=== PATIENT | female | born 1985 | race Caucasian/White ===

== ENCOUNTER 2022-09-11 16:46 | Inpatient (IN) | payer BC, SELFPAY ==
[2022-09-11 17:04] VITALS: PULSE 114; O2SAT 98
[2022-09-11 17:07] VITALS: BP 129/67; PULSE 106
[2022-09-11 17:18] VITALS: RESP 16; TEMP 36.6
[2022-09-11 17:30] VITALS: BMI 43.7
[2022-09-11 18:09] VITALS: BP 124/80; PULSE 93
--- NOTE | 2022-09-11 18:14 | PM.OBHPLI ---
OB - H&P: HPI Labor/Induction History of Present Illness Date Seen: 09/11/22 Chief Complaint: The patient is a 37 year old 2 para 0010 at 39+2 weeks gestation by LMP and confirmed with 1st trimester US, who presents for IOL for AMA, maternal obesity, mild polyhydramnios and unstable lie. . Chief complaint: Induction for AMA- Unstable lie : 2 Para: 0 Narrative: Maeve Tran is a 37 year old female here for IOL for AMA, unstable lie, mild polyhydramnios and maternal obesity. has been otherwise uncomplicated. GBS negative, rubella non-immune, rH+. She has has reassuring BPPs weekly since 32 weeks and normal growth with last growth at 43% at 35 weeks History of Present Dating criteria: based on LMP care: good care Abnormal ultrasound findings: Normal US findings other than mild polyhydramnios. Medical complications: none Labs Blood type: B (+) positive Rubella: nonimmune RPR/VDLR: nonreactive GBS status: negative HBsAG: negative Review of Systems Status of ROS: Reports: 6 or more systems reviewed and unremarkable except as noted in History and below Meds Home Medications and Allergies Home Medications Medication Instructions Recorded Confirmed Type aspirin 81 mg chewable tablet 81 mg PO QDAY 08/30/22 09/11/22 History 103-folic acid 400 tab PO 08/30/22 08/30/22 History mcg-omeg3 32.5 mg-dha-fish oil chew tablet ( with DHA and Folic Acid) Allergies Allergy/AdvReac Type Severity Reaction Status Date / Time No Known Drug Allergies Allergy Verified 08/30/22 11:02 OB - H&P: Exam Physical Exam: Vital signs: Temp Pulse Resp BP Pulse Ox 97.8 F 93 16 124/80 98 09/11/22 17:18 09/11/22 18:09 09/11/22 17:18 09/11/22 18:09 09/11/22 17:04 Constitutional: Constitutional: no acute distress Routine HEENT Exam: Head: Present atraumatic Eye: Present EOMI ENT: Present mucous membranes moist Routine Neck Exam: Neck: Present full ROM Routine Respiratory Exam: Respiratory: Present CTA bilaterally Routine Cardiovascular Exam: Cardiovascular: RRR Detailed Labor and Delivery Exam: Dilation (cm): 1 Effacement (%): 30 Cervix position: posterior Consistency: medium Fetus (Single): Station: -3 Routine Neurological Exam: Present alert, oriented X3 and CN II-XII intact Routine Psychiatric Exam: Present normal affect OB - Problem Based A/P Additional Plan (1) : Status: Acute (2) AMA (advanced maternal age) multigravida 35+: Status: Acute (3) Polyhydramnios: Status: Acute (4) Unstable lie of fetus: Status: Acute Delivery/Labor/Induction Plan Plan: induction Induction method: per misoprostol protocol
[2022-09-11] MEDS: miSOPROStoL 25 MCG/0.25 TABLET PO ×3 (18:15→22:21)
[2022-09-11 18:23] LABS: SARS PCR* Negative SARS-CoV-2 (Negative)
[2022-09-11 18:43] LABS: Basophils Absolute Auto 0.03 K/uL (0.00-0.30); Basophils Percent Auto 0.3 % (0.0-3.0); Eosinophils Absolute Auto 0.12 K/uL (0.00-0.50); Eosinophils Percent Auto 1.2 % (0.0-7.0); Hematocrit 35.6 % (33.0-51.0); Hemoglobin* 12.1 gm/dL (12.0-16.0); Immature Granulocytes Abs Auto 0.15 K/uL (0.00-0.30); Immature Granulocytes Pct Auto 1.5 %; Lymphocytes Absolute Auto 2.54 K/uL (0.90-2.90); Lymphocytes Percent Auto 26.1 % (20-44); Mean Corpuscular HGB Conc 34 gm/dL (32-36); Mean Corpuscular Hemoglobin 29 pg (26-34); Mean Corpuscular Volume 85 fL (80-100); Monocytes Percent Auto 10.4 % (0.0-11.0); Neutrophils Percent Auto 60.5 % (42.0-72.0); Platelet Count* 281 K/uL (140-440); RDW Coefficient of Variation % 13.1 % (11.5-15.5); Red Blood Count 4.18 m/uL (4.00-5.20); White Blood Count* 9.75 K/uL (4.50-11.00)
[2022-09-11 18:48] LABS: Slide Review Reflex No
[2022-09-11] MEDS: hydrOXYzine pamoate 25 MG CAPSULE 100 MG PO (22:21)
[2022-09-11 22:25] VITALS: BP 131/75; PULSE 86; RESP 16; TEMP 36.4
[2022-09-12] VITALS (137 sets, daily range): BP systolic 90–168; BP diastolic 53–95; PULSE 84–153; RESP 16–18; TEMP 36.5–36.9; O2SAT 88–100
[2022-09-12] MEDS: miSOPROStoL 25 MCG/0.25 TABLET PO ×3 (01:33→05:41)
[2022-09-12] MEDS: MORPHINE 10 MG/ML inj IM (01:34)
[2022-09-12] MEDS: LACTATED RINGERS 1000 ML 1,000 ML 125 ML IV ×2 (09:00→20:14)
[2022-09-12] MEDS: OXYTOCIN 30 unit/500 ML in NS 30 UNIT/500 ML BAG IVPB (09:29)
[2022-09-12] MEDS: ROPIVACAINE 0.2% 100 ml 100 ML 12 MG EPIDURAL ×2 (11:53→21:09)
--- NOTE | 2022-09-12 12:16 | PM.OBPNL ---
Subjective Date Seen: 09/12/22 Narrative: Maeve is a at 39+3 here for IOL for AMA, mild poly and unstable lie. Received 6 doses of PO cytotec overnight and had SROM with clear fluid at 0410. Pitocin was started around 0945 and contractions became stronger. Epidural is just placed and patient is now more comfortable. Objective Vital Signs: Last Vital Signs Temp 98.0 F 09/12/22 10:54 Pulse 109 H 09/12/22 12:11 Resp 18 09/12/22 09:35 BP 107/57 L 09/12/22 12:11 Pulse Ox 99 09/12/22 12:15 Pelvic Exam Dilation (cm): 4.5 Effacement (%): 90 Station: -3 Contractions Monitor mode: External Contraction pattern: Irregular Contraction intensity: Moderate Pitocin Rate (mU/min): 1 Assessment Assessment: induction ongoing Station: -3 Amniotic Membrane Status: SROM Status: Category l Heart Rate Baseline: 150 [place] Variability: Moderate (6-25) Monitor Accelerations: Present Monitor Decelerations: None Plan Plan: Continue pitocin titration. Anticipate .
--- NOTE | 2022-09-12 13:43 | PM.ANBPRC ---
[facility] Social History Smoking Status: Former smoker Meds Home Medications and Allergies Home Medications Medication Instructions Recorded Confirmed Type aspirin 81 mg chewable tablet 81 mg PO QDAY 08/30/22 09/11/22 History 103-folic acid 400 tab PO 08/30/22 08/30/22 History mcg-omeg3 32.5 mg-dha-fish oil chew tablet ( with DHA and Folic Acid) Allergies Allergy/AdvReac Type Severity Reaction Status Date / Time No Known Drug Allergies Allergy Verified 09/12/22 07:45 Results Labs Labs: Laboratory Results - last 24 hr 09/11/22 09/11/22 09/11/22 17:30 18:38 18:38 WBC 9.75 RBC 4.18 Hgb 12.1 Hct 35.6 MCV 85 MCH 29 MCHC 34 RDW Coeff of Emigdio 13.1 Plt Count 281 Neut % (Auto) 60.5 Lymph % (Auto) 26.1 [place] % (Auto) 10.4 Eos % (Auto) 1.2 Baso % (Auto) 0.3 Neut # (Auto) 5.90 Lymph # (Auto) 2.54 [place] # (Auto) 1.00 H Eos # (Auto) 0.12 Baso # (Auto) 0.03 Abs Immat Gran (auto) 0.15 Imm/Tot Granulo (auto) 1.5 SARS-CoV-2 (PCR) Negative SARS-CoV-2 Blood Type B Positive Antibody Screen NEGATIVE Vital Signs Vital Signs: Last Vital Signs Temp 97.9 F 09/12/22 12:26 Pulse 96 09/12/22 13:37 Resp 18 09/12/22 09:35 BP 110/61 09/12/22 13:37 Pulse Ox 97 09/12/22 13:40 Weight: 115.666 kg Height: 162.56 cm Anesthesia Procedures Epidural Insertion Patient Location: OB Start Time: 11:00 Stop Time: 12:00 Start Date: 09/12/22 Stop Date: 09/12/22 Reason for Block: procedure for pain Patient Position: sitting Performed By: Zhang Klein Preanesthetic Checklist: IV checked, risks and benefits discussed, surgical consent, monitors and equipment checked, pre-op evaluation, timeout performed and anesthesia consent Prep: chlorhexidine gluconate Monitoring: blood pressure monitoring, continuous pulse oximetry and heart rate Approach: midline Vertebral Space: lumbar (1-5) Epidural Technique: GREY saline Needle Type: Tuohy needle Injection Technique: continuous catheter Needle gauge: 17 Needle Length (cm): 10 cm Needle Insertion Depth (cm): 6 Catheter Gauge: 19 Catheter Type: multi-orifice Catheter at skin depth (cm): 12 Test Dose Result: negative and lidocaine 1.5% with epinephrine 1 to 200,000
[2022-09-12] MEDS: LACTATED RINGERS 1000 ML 1,000 ML 999 ML IV (15:25)
--- NOTE | 2022-09-12 16:40 | PM.OBPNL ---
Subjective Date Seen: 09/12/22 Narrative: Patient is comfortable with epidural, having some nausea. Called to put in internal monitors due to variable decels, however patient is now near to complete. Objective Vital Signs: Last Vital Signs Temp 98.0 F 09/12/22 14:10 Pulse 121 H 09/12/22 16:37 Resp 18 09/12/22 09:35 BP 116/77 09/12/22 16:37 Pulse Ox 100 09/12/22 16:36 Pelvic Exam Dilation (cm): 9.5 Effacement (%): 100 Station: -2 Contractions Monitor mode: External Contraction pattern: Regular Contraction intensity: Moderate Pitocin Rate (mU/min): 1 Assessment Station: -3 Amniotic Membrane Status: SROM Status: Category l Heart Rate Baseline: 150 Monitor Accelerations: Present Monitor Decelerations: Variable Plan Plan: Continue pitocin induction. Anticipate .
[2022-09-13] VITALS (30 sets, daily range): BP systolic 104–169; BP diastolic 54–88; PULSE 96–140; RESP 16; TEMP 36.3; O2SAT 97
--- NOTE | 2022-09-13 00:29 | PM.OBPNL ---
Subjective Date Seen: 09/13/22 Narrative: Maeve is a at 39+4 who is here for IOL for AMA, mild poly, unstable lie. Has been pushing for 5 hours, was making progress, however IV has come out and she is exhausted. Minimal contractions now without pitocin. Objective Vital Signs: Last Vital Signs Temp 98 F 09/12/22 19:40 Pulse 103 H 09/13/22 00:07 Resp 16 09/12/22 19:40 BP 145/88 H 09/13/22 00:07 Pulse Ox 100 09/12/22 22:18 Pelvic Exam Dilation (cm): 10 Effacement (%): 100 Station: +1 Contractions Monitor mode: External Contraction Frequency: 10 minutes Contraction pattern: Irregular Contraction intensity: Strong/Firm Pitocin Rate (mU/min): 0 Assessment Station: -3 Amniotic Membrane Status: SROM Status: Category l Heart Rate Baseline: 150 Monitor Accelerations: Present Monitor Decelerations: Variable Plan Plan: Discussed options for vacuum assisted delivery vs given time she has been pushing. Also discussed case with dials inspector continuous conveyor screen drier who will be present for vacuum and/or consult for delivery.
--- NOTE | 2022-09-13 02:17 | P.OBCN_ITS ---
OB - CN: HPI Date of Consult Time Seen by Provider: 01:00 Date Seen: 09/13/22 Patient: Ivelisse Patient Consult date: 09/13/22 Requesting Physician: Sylvia Olson MD Primary Care Provider: Not a Local Provider Consult Narrative Reason for consult: arrest of labor Narrative: The patient is a 37 year old G 2 P 0010 at 39 4/7 weeks gestation that was admitted to the Center on 09/11/22 for induction of labor. She reached complete cervical dilation at 1830 on 09/12/2022. She initally had no urge to push due to dense epidural. The infusion was decreased, and she began actively pushing around 1900. At the time that I was consulted by Dr. Olson, the patie nt had been pushing for approximately 5 hours. Contraction frequency and pushing efforts were somewhat variable, but she had made progress. Dr. Olson requested my evaluation and opinion about whether vacuum-assisted vaginal delivery was an option, or if we needed to consider delivery. History of Present Dating criteria: based on LMP care: good care complications comment: AMA, unstable lie, mild polyhydramnios and maternal obesity. History History 2 Elective abortions Para 0 Spontaneous abortions Hx # Term Pregnancies Ectopic pregnancies Hx # Pregnancies Multiple births Number of Living Children 0 Labs Blood type: B (+) positive Rubella: nonimmune RPR/VDLR: nonreactive GBS status: negative HBsAG: negative OB Labs: Lab Assessment Start: 09/11/22 16:54 Freq: ONCE Status: Complete Protocol: PC.OBGBS Activity Type Activity Date Activity User E-sign Co-sign Detail Recorded Client Recorded Date Recorded By Document 09/11/22 17:32 SHANNON [id number] 09/11/22 17:32 SHANNON 09/11/22 17:32 Lab Assessment GBS Negative Previous [place] with Invasive GBS No Does Patient Meet Criteria No No Treatment Needed OK Maternal Blood Type B Maternal RH Factor Positive Evaluate Maternal Rubella Immune Status Non-Immune Hepatitis B Surface Antigen Negative Maternal HIV Status Negative Maternal Syphillis (RPR) Status Negative Are Labs Available Yes PFSH PFSH Social History Smoking Status: Former smoker Meds Home Medications and Allergies Home Medications Medication Instructions Recorded Confirmed Type aspirin 81 mg chewable tablet 81 mg PO QDAY 08/30/22 09/11/22 History 103-folic acid 400 tab PO 08/30/22 08/30/22 History mcg-omeg3 32.5 mg-dha-fish oil chew tablet ( with DHA and Folic Acid) Allergies Allergy/AdvReac Type Severity Reaction Status Date / Time No Known Drug Allergies Allergy Verified 09/12/22 07:45 OB - H&P: Exam Physical Exam: Vital signs: Temp Pulse Resp BP Pulse Ox 97.9 F 118 H 18 141/74 H 100 09/12/22 22:26 09/13/22 01:53 09/12/22 22:26 09/13/22 01:53 09/12/22 22:18 Constitutional: Constitutional: no acute distress Detailed Labor and Delivery Exam: Patient Gravid: yes Dilation (cm): 10 Effacement (%): 100 Cervix position: mid Contraction intensity: Strong/Firm Comments: Pitocin infusion at 10 mu/min Fetus (Single): Station: -2 (BHAKTI position) Amniotic Membrane Status: SROM Amniotic Membrane Fluid Description: Clear Monitor Accelerations: Present Monitor Decelerations: Early Residential Variability: Moderate (6-25) OB - CN: A/P Assessment and Plan (1) : Status: Acute (2) AMA (advanced maternal age) multigravida 35+: Status: Acute (3) Polyhydramnios: Status: Acute (4) Unstable lie of fetus: Status: Acute Plan I found the pelvis to be adequate and the fetus to be in a BHAKTI position. I advised Dr. Olson that vacuum-assisted vaginal delivery would be appropriate. This was attempted, with 3 pulls, and the infant did not deliver, though there was some further descent of the vertex per Dr. Olson. Continued pushing without the vacuum was done, with no further descent. delivery recommended. O.R. team notified. Addendum: While waiting for the team, the patient continued active pushing and was able to bring the head to the level of the introitus. One additional pull was done with the vacuum by Dr. Olson, and then the patient was able to deliver the spontaneously with a few more active pushes.
--- NOTE | 2022-09-13 03:39 | P.OBPRC_ITS ---
Procedure Procedure Done: Global Procedure Details: Procedures Operation Date: 09/13/22 02:45 <No data on this case meets the specified criteria> Events: Polyhydramnios and AMA Intrapartal Events: Labor Induction and Prolonged 2nd Stage >2.5 Hrs Induction method: per misoprostol protocol Delivery augmentation: pitocin Delivery monitor: external FHT Route of delivery: vacuum extraction Indication for instrumentation: maternal exhaustion Episiotomy description: None Laceration description: Vaginal - 2nd Degree Delivery repair: Vicryl Estimated blood loss (mL): 250 Anesthesia type: Epidural Narrative: The patient is a 37 year-old admitted on 09/11/22 at 39 Weeks, 2 Days gestation for IOL for AMA.? Cervical exam on admission was 1 cm/20 % effaced/-3 station with membranes intact in vertex presentation.? Contractions were absent.? heart rate demonstrated baseline 150 bpm with moderate variabili ty, + accelerations, - decelerations; a category 1 tracing.? SROM occurred at 0408 with clear fluid. ? Labor Analgesia:? epidural ? Pitocin:? yes ? Labor onset:? 1130 ? Complete:? 1830 ? Pushing:? 1830 ? heart tones during second stage were category 1. Due to maternal exhaustion, a vacuum was placed through 3 contractions at 0135, 0145 adn 0149. This was done in consultation with Dr. Miller and Dr. elliott was present for delivery for infant. This did bring vertex down and baby continued to have reassuring heart tones, so mom continued to push. A second vacuum attempt was done at 0240 as an outlet vacuum, however a pop off occured at 0242 ? At 0253 a viable male infant delivered in vertex OA presentation over intact perineum via spontaneous vaginal delivery.? was placed on maternal abdomen.? Cord was clamped and cut after a 30-60 second delay.? Nose and mouth were bulb suctioned.? Infant weight pending.? 8 at 1 minute and 9 at 5 minutes.? Shoulder dystocia: no.? Nuchal cord: no. ? Placenta delivered spontaneously and complete at 0258 with a 3 vessel cord. ? Mother and were stable after delivery. ? Lacerations:? 2nd degree vaginal and vaginal sulcus tear, repaired with 3-0 vicryl. ? Blood loss: 250 mL. Blood loss measurement type: QBL ? Sponge and needles counts are correct. Infant Infant Gender: Male presentation: vertex Placental Delivery Description: Spontaneous Cord Description: 3 Vessels total score - 1 minute: 8 total score - 5 minute: 9
[2022-09-13] MEDS: LACTATED RINGERS 1000 ML 1,000 ML IV ×2 (06:13→07:40)
[2022-09-13] MEDS: miSOPROStoL 800 MCG/4 TABLET PR (06:44)
[2022-09-13] MEDS: ACETAMINOPHEN 500 MG TABLET 1000 MG PO (06:56)
[2022-09-13] MEDS: OXYTOCIN 10 UNIT/ML INJ IM (07:42)
[2022-09-13] MEDS: TRANEXAMIC ACID 100 MG/ML INJ 1000 MG IV (07:42)
[2022-09-13] MEDS: METHYLERGONOVINE MALEATE 0.2 MG/ML INJ IM (07:42)
[2022-09-13 08:37] LABS: INR 0.99 (0.91-1.10); Partial Thromboplastin Time* 28 Seconds (23-33); Prothrombin Time 13.7 Seconds
[2022-09-13 08:40] LABS: Hematocrit 24.2 % (33.0-51.0); Hemoglobin* 8.4 gm/dL (12.0-16.0); Mean Corpuscular Hemoglobin 35 pg (26-34); Mean Corpuscular Volume 85 fL (80-100); Red Blood Count 2.86 m/uL (4.00-5.20); White Blood Count* 30.16 K/uL (4.50-11.00)
[2022-09-13 08:45] LABS: Basophils Percent Auto 0.1 % (0.0-3.0); Mean Corpuscular HGB Conc 35 gm/dL (32-36); Monocytes Percent Auto 9.9 % (0.0-11.0); Neutrophils Percent Auto 80.8 % (42.0-72.0); Platelet Count* 335 K/uL (140-440)
[2022-09-13 08:46] LABS: Immature Granulocytes Pct Auto 1.2 %; Slide Review Reflex Yes
[2022-09-13 08:52] LABS: Fibrinogen* 459 mg/dL (200-450)
[2022-09-13 09:30] LABS: Basophils Percent Auto 0.1 % (0.0-3.0); Eosinophils Percent Auto 0.1 % (0.0-7.0); Hematocrit 20.9 % (33.0-51.0); Immature Granulocytes Pct Auto 1.1 %; Lymphocytes Percent Auto 6.6 % (20-44); Mean Corpuscular HGB Conc 34 gm/dL (32-36); Mean Corpuscular Hemoglobin 30 pg (26-34); Mean Corpuscular Volume 87 fL (80-100); Monocytes Percent Auto 7.8 % (0.0-11.0); Neutrophils Percent Auto 84.3 % (42.0-72.0); Platelet Count* 176 K/uL (140-440); RDW Coefficient of Variation % 13.1 % (11.5-15.5); Red Blood Count 2.41 m/uL (4.00-5.20); White Blood Count* 19.11 K/uL (4.50-11.00)
[2022-09-13 09:31] LABS: Hemoglobin* 7.2 gm/dL (12.0-16.0); Slide Review Reflex No
[2022-09-13 09:33] LABS: Slide Review Acceptable Review (Acceptable)
[2022-09-13 09:47] LABS: Albumin* 1.7 g/dL (3.3-5.0); Chloride* 105 mmol/L (96-114); Sodium* 127 mmol/L (135-149)
[2022-09-13 09:48] LABS: Potassium* 5.3 mmol/L (3.6-5.1)
[2022-09-13 09:49] LABS: INR 1.11 (0.91-1.10)
[2022-09-13 09:50] LABS: ABG PCO2 42 mmHG (35-45); Base Excess ABG -7.3 mmol/L (-3.0-3.0); HCO3 ABG 19 mmol/L (21-28); Oxygen Saturation ABG 100 % (92-100); TCO2 ABG 19 mmol/l (21-30); pH ABG 7.27 (7.35-7.45)
[2022-09-13 09:50] LABS: Alanine Aminotransferase* 18 U/L (4-35); Alkaline Phosphatase* 48 U/L (40-150); Aspartate Amino Transferase* 34 U/L (12-35); Bilirubin Total* 0.4 mg/dL (0.1-1.5); Blood Urea Nitrogen* 12 mg/dL (5-24); Calcium* 6.9 mg/dL (8.4-10.6); Carbon Dioxide* 18 mmol/L (20-32); Creatinine* 0.6 mg/dL (0.5-1.5); Est. Creatinine Clearance* 111.93; Estimated Glomerular Filt Rate 119 ml/min; Fibrinogen* 332 mg/dL (200-450); Glucose* 103 mg/dL (60-115); Partial Thromboplastin Time* 30 Seconds (23-33); Total Protein* 3.7 g/dL (6.0-8.3)
[2022-09-13 10:51] LABS: Basophils Percent Auto 0.1 % (0.0-3.0); Hematocrit 29.5 % (33.0-51.0); Hemoglobin* 10.2 gm/dL (12.0-16.0); Immature Granulocytes Pct Auto 0.8 %; Lymphocytes Percent Auto 5.4 % (20-44); Mean Corpuscular HGB Conc 35 gm/dL (32-36); Mean Corpuscular Hemoglobin 30 pg (26-34); Mean Corpuscular Volume 88 fL (80-100); Monocytes Percent Auto 8.3 % (0.0-11.0); Neutrophils Percent Auto 85.4 % (42.0-72.0); Platelet Count* 189 K/uL (140-440); RDW Coefficient of Variation % 13.6 % (11.5-15.5); Red Blood Count 3.36 m/uL (4.00-5.20); Slide Review Reflex No; White Blood Count* 22.41 K/uL (4.50-11.00)
[2022-09-13 11:14] LABS: INR 0.99 (0.91-1.10); Prothrombin Time 13.7 Seconds
[2022-09-13 11:15] LABS: Fibrinogen* 461 mg/dL (200-450); Partial Thromboplastin Time* 29 Seconds (23-33)
--- NOTE | 2022-09-13 12:27 | W.PM.OBTRAN ---
History of Present Illness History of Present Illness History of Present Illness: Harley is a 37-year-old G2 now P 1-0-1-1 woman who is status post normal spontaneous vaginal delivery at 39 weeks, 4 days gestation after induction of labor for indication of unstable lie and mild polyhydramnios. Her was complicated by/notable for: 1. Advanced maternal age. 2. Unstable lie and mild polyhydramnios. 3. Maternal obesity. Induction of labor consisted of 6 doses of p.o. Cytotec. She had SROM for clear fluid thereafter. She Pitocin for augmentation of labor. She had epidural for pain control. She had a markedly prolonged 2nd stage, nearly 8 hours. She had a vacuum assisted vaginal delivery of a male infant at 2:53 a.m.. She had spontaneous delivery of placenta 2:58 a.m.. She had a second-degree vaginal and sulcal laceration. EBL for delivery was 250 mL. At around 7:30 a.m. this morning, the patient began to hemorrhage. Between that time and the onset of surgery, her EBL was 4 L. She received multiple uterotonics and tranexamic acid. She received massive transfusion. She had attempted manual removal of placental fragments, as well as uterine curettage. None of these efforts were successful at removing placental fragments on the posterior fundus. Given concerns for placenta accreta and massive blood loss, we proceeded with total abdominal hysterectomy with bilateral salpingectomy. Cystoscopy revealed bilateral ureteral patency after procedure. During necrosis of the procedure, she received 4 units of packed red blood cells, 3 units of FFP and 1 unit of cryoprecipitate. Summary of recent labs at the time of the writing of this transfer document include: CBC at 7:40 a.m.: Hemoglobin 8.4, hematocrit 24.2, platelets 335 CBC at 9:21 a.m.: Hemoglobin 7.2, hematocrit 20.9, platelets 176 CBC at 10:43 a.m.: Hemoglobin 10.2, hematocrit 29.5, platelets 189 Serial fibrinogen levels: 7:40 a.m.: 459 9:21 a.m.: 332 10:43 a.m.: 461 Arterial blood gas at 9:45 a.m.: PH 7.27, pCO2 42, PO2 143, HC03 19, base excess -7.3 Chemistries at 9:21 a.m.: Sodium 127, potassium 5.3, calcium 6.9 Meds Home Medications and Allergies Home Medications Medication Instructions Recorded Confirmed Type aspirin 81 mg chewable tablet 81 mg PO QDAY 08/30/22 09/11/22 History 103-folic acid 400 tab PO 08/30/22 08/30/22 History mcg-omeg3 32.5 mg-dha-fish oil chew tablet ( with DHA and Folic Acid) Allergies Allergy/AdvReac Type Severity Reaction Status Date / Time No Known Drug Allergies Allergy Verified 09/12/22 07:45 [facility] Medical History (Updated 09/13/22 @ 12:32 by Coco Brown MD) Placenta accreta hemorrhage Retained placenta Social History Smoking Status: Former smoker History History 2 Elective abortions Para 1 Spontaneous abortions Hx # Term Pregnancies Ectopic pregnancies Hx # Pregnancies Multiple births Number of Living Children 0 OB - H&P: Exam Physical Exam Vital signs: Temp Pulse Resp BP Pulse Ox 97.4 F L 137 H 16 112/54 L 97 09/13/22 00:55 09/13/22 07:39 09/13/22 00:55 09/13/22 07:39 09/13/22 07:46 Narrative: Patient remains intubated, in operating room, awaiting transfer for higher level of care Results Labs Lab Assessment Start: 09/11/22 16:54 Freq: ONCE Status: Complete Protocol: PC.OBGBS Activity Type Activity Date Activity User E-sign Co-sign Detail Recorded Client Recorded Date Recorded By Document 09/11/22 17:32 SHANNON [id number] 09/11/22 17:32 SHANNON 09/11/22 17:32 Lab Assessment GBS Negative Previous with Invasive GBS No Does Patient Meet Criteria No No Treatment Needed OK Maternal Blood Type B Maternal RH Factor Positive Evaluate Maternal Rubella Immune Status Non-Immune Hepatitis B Surface Antigen Negative Maternal HIV Status Negative Maternal Syphillis (RPR) Status Negative Are Labs Available Yes Labs Laboratory Tests 09/13/22 09/13/22 09/13/22 Range/Units 10:43 10:43 09:45 WBC 22.41 H (4.50-11.00) K/uL RBC 3.36 L (4.00-5.20) m/uL Hgb 10.2 L (12.0-16.0) gm/dL Hct 29.5 L (33.0-51.0) % MCV 88 (80-100) fL MCH 30 (26-34) pg MCHC 35 (32-36) gm/dL RDW Coeff of Emigdio 13.6 (11.5-15.5) % Plt Count 189 (140-440) K/uL Neut % (Auto) 85.4 H (42.0-72.0) % Lymph % (Auto) 5.4 L (20-44) % Mcdowell % (Auto) 8.3 (0.0-11.0) % Eos % (Auto) 0.0 (0.0-7.0) % Baso % (Auto) 0.1 (0.0-3.0) % Neut # (Auto) 19.10 H (1.7-7.0) K/uL Lymph # (Auto) 1.20 (0.90-2.90) K/uL Mcdowell # (Auto) 1.90 H (0.00-0.90) K/UL Eos # (Auto) 0.00 (0.00-0.50) K/uL Baso # (Auto) 0.00 (0.00-0.30) K/uL Abs Immat Gran (auto) 0.20 (0.00-0.30) K/uL Imm/Tot Granulo (auto) 0.8 % Diff Slide Review (Acceptable) INR 0.99 (0.91-1.10) APTT 29 (23-33) Seconds Fibrinogen 461 H (200-450) mg/dL ABG pH 7.27 L (7.35-7.45) ABG pCO2 42 (35-45) mmHG ABG pO2 143.0 H (80-105) mmHG ABG HCO3 19 L (21-28) mmol/L ABG Total CO2 19 L (21-30) mmol/l ABG O2 Saturation 100 (92-100) % ABG Base Excess -7.3 L (-3.0-3.0) mmol/L Sodium (135-149) mmol/L Potassium (3.6-5.1) mmol/L Chloride (96-114) mmol/L Carbon Dioxide (20-32) mmol/L BUN (5-24) mg/dL Creatinine (0.5-1.5) mg/dL Estimated Creat Clear Estimated GFR ml/min Glucose (60-115) mg/dL Calcium (8.4-10.6) mg/dL Total Bilirubin (0.1-1.5) mg/dL AST (12-35) U/L ALT (4-35) U/L Alkaline Phosphatase (40-150) U/L Total Protein (6.0-8.3) g/dL Albumin (3.3-5.0) g/dL SARS-CoV-2 (PCR) (Negative) Blood Type Antibody Screen Crossmatch (AHG) 09/13/22 09/13/22 09/13/22 Range/Units 09:21 09:21 09:21 WBC 19.11 H (4.50-11.00) K/uL RBC 2.41 L (4.00-5.20) m/uL Hgb 7.2 L* (12.0-16.0) gm/dL Hct 20.9 L (33.0-51.0) % MCV 87 (80-100) fL MCH 30 (26-34) pg MCHC 34 (32-36) gm/dL RDW Coeff of Emigdio 13.1 (11.5-15.5) % Plt Count 176 (140-440) K/uL Neut % (Auto) 84.3 H (42.0-72.0) % Lymph % (Auto) 6.6 L (20-44) % Mcdowell % (Auto) 7.8 (0.0-11.0) % Eos % (Auto) 0.1 (0.0-7.0) % Baso % (Auto) 0.1 (0.0-3.0) % Neut # (Auto) 16.10 H (1.7-7.0) K/uL Lymph # (Auto) 1.30 (0.90-2.90) K/uL Mcdowell # (Auto) 1.50 H (0.00-0.90) K/UL Eos # (Auto) 0.00 (0.00-0.50) K/uL Baso # (Auto) 0.00 (0.00-0.30) K/uL Abs Immat Gran (auto) 0.20 (0.00-0.30) K/uL Imm/Tot Granulo (auto) 1.1 % Diff Slide Review (Acceptable) INR 1.11 H (0.91-1.10) APTT 30 (23-33) Seconds Fibrinogen 332 (200-450) mg/dL ABG pH (7.35-7.45) ABG pCO2 (35-45) mmHG ABG pO2 (80-105) mmHG ABG HCO3 (21-28) mmol/L ABG Total CO2 (21-30) mmol/l ABG O2 Saturation (92-100) % ABG Base Excess (-3.0-3.0) mmol/L Sodium 127 L (135-149) mmol/L Potassium 5.3 H (3.6-5.1) mmol/L Chloride 105 (96-114) mmol/L Carbon Dioxide 18 L (20-32) mmol/L BUN 12 (5-24) mg/dL Creatinine 0.6 (0.5-1.5) mg/dL Estimated Creat Clear 111.93 Estimated GFR 119 ml/min Glucose 103 (60-115) mg/dL Calcium 6.9 L (8.4-10.6) mg/dL Total Bilirubin 0.4 (0.1-1.5) mg/dL AST 34 (12-35) U/L ALT 18 (4-35) U/L Alkaline Phosphatase 48 (40-150) U/L Total Protein 3.7 L (6.0-8.3) g/dL Albumin 1.7 L (3.3-5.0) g/dL SARS-CoV-2 (PCR) (Negative) Blood Type Antibody Screen Crossmatch (AHG) 09/13/22 09/13/22 09/13/22 Range/Units 08:06 07:40 07:40 WBC 30.16 H* (4.50-11.00) K/uL RBC 2.86 L (4.00-5.20) m/uL Hgb 8.4 L (12.0-16.0) gm/dL Hct 24.2 L (33.0-51.0) % MCV 85 (80-100) fL MCH 35 H (26-34) pg MCHC 35 (32-36) gm/dL RDW Coeff of Emigdio (11.5-15.5) % Plt Count 335 (140-440) K/uL Neut % (Auto) 80.8 H (42.0-72.0) % Lymph % (Auto) 8.0 L (20-44) % Mcdowell % (Auto) 9.9 (0.0-11.0) % Eos % (Auto) 0.0 (0.0-7.0) % Baso % (Auto) 0.1 (0.0-3.0) % Neut # (Auto) 24.40 H (1.7-7.0) K/uL Lymph # (Auto) 2.40 (0.90-2.90) K/uL Mcdowell # (Auto) 3.00 H (0.00-0.90) K/UL Eos # (Auto) 0.00 (0.00-0.50) K/uL Baso # (Auto) 0.00 (0.00-0.30) K/uL Abs Immat Gran (auto) 0.40 H (0.00-0.30) K/uL Imm/Tot Granulo (auto) 1.2 % Diff Slide Review Acceptable Review (Acceptable) INR 0.99 (0.91-1.10) APTT 28 (23-33) Seconds Fibrinogen 459 H (200-450) mg/dL ABG pH (7.35-7.45) ABG pCO2 (35-45) mmHG ABG pO2 (80-105) mmHG ABG HCO3 (21-28) mmol/L ABG Total CO2 (21-30) mmol/l ABG O2 Saturation (92-100) % ABG Base Excess (-3.0-3.0) mmol/L Sodium (135-149) mmol/L Potassium (3.6-5.1) mmol/L Chloride (96-114) mmol/L Carbon Dioxide (20-32) mmol/L BUN (5-24) mg/dL Creatinine (0.5-1.5) mg/dL Estimated Creat Clear Estimated GFR ml/min Glucose (60-115) mg/dL Calcium (8.4-10.6) mg/dL Total Bilirubin (0.1-1.5) mg/dL AST (12-35) U/L ALT (4-35) U/L Alkaline Phosphatase (40-150) U/L Total Protein (6.0-8.3) g/dL Albumin (3.3-5.0) g/dL SARS-CoV-2 (PCR) (Negative) Blood Type Antibody Screen Crossmatch (AHG) See Detail 09/11/22 09/11/22 09/11/22 Range/Units 18:38 18:38 17:30 WBC 9.75 (4.50-11.00) K/uL RBC 4.18 (4.00-5.20) m/uL Hgb 12.1 (12.0-16.0) gm/dL Hct 35.6 (33.0-51.0) % MCV 85 (80-100) fL MCH 29 (26-34) pg MCHC 34 (32-36) gm/dL RDW Coeff of Emigdio 13.1 (11.5-15.5) % Plt Count 281 (140-440) K/uL Neut % (Auto) 60.5 (42.0-72.0) % Lymph % (Auto) 26.1 (20-44) % Mcdowell % (Auto) 10.4 (0.0-11.0) % Eos % (Auto) 1.2 (0.0-7.0) % Baso % (Auto) 0.3 (0.0-3.0) % Neut # (Auto) 5.90 (1.7-7.0) K/uL Lymph # (Auto) 2.54 (0.90-2.90) K/uL Mcdowell # (Auto) 1.00 H (0.00-0.90) K/UL Eos # (Auto) 0.12 (0.00-0.50) K/uL Baso # (Auto) 0.03 (0.00-0.30) K/uL Abs Immat Gran (auto) 0.15 (0.00-0.30) K/uL Imm/Tot Granulo (auto) 1.5 % Diff Slide Review (Acceptable) INR (0.91-1.10) APTT (23-33) Seconds Fibrinogen (200-450) mg/dL ABG pH (7.35-7.45) ABG pCO2 (35-45) mmHG ABG pO2 (80-105) mmHG ABG HCO3 (21-28) mmol/L ABG Total CO2 (21-30) mmol/l ABG O2 Saturation (92-100) % ABG Base Excess (-3.0-3.0) mmol/L Sodium (135-149) mmol/L Potassium (3.6-5.1) mmol/L Chloride (96-114) mmol/L Carbon Dioxide (20-32) mmol/L BUN (5-24) mg/dL Creatinine (0.5-1.5) mg/dL Estimated Creat Clear Estimated GFR ml/min Glucose (60-115) mg/dL Calcium (8.4-10.6) mg/dL Total Bilirubin (0.1-1.5) mg/dL AST (12-35) U/L ALT (4-35) U/L Alkaline Phosphatase (40-150) U/L Total Protein (6.0-8.3) g/dL Albumin (3.3-5.0) g/dL SARS-CoV-2 (PCR) Negative SARS-CoV-2 (Negative) Blood Type B Positive Antibody Screen NEGATIVE Crossmatch (AHG) Assessment and Plan Assessment and plan (1) hemorrhage: Problem comment: Greater than 4 L of estimated blood loss. Suspected placenta accreta on exam. Now status post massive transfusion. Currently with stable vital signs. Intubated. Status: Acute Mode of transport: [facility] Transfer to: [facility] (2) Placenta accreta: Status: Acute Plan Transfer to higher level of care for ICU admission. [facility] has accepted patient in transfer. Dr. Carpio is accepting physician.
--- NOTE | 2022-09-13 12:33 | P.NB_ITS ---
Nerve Block Nerve Block Time Seen by Provider: 12:34 Date Seen: 09/13/22 Type of block requested by surgeon for post-operative analgesia: TAP Side: bilateral Time out performed: Yes Verification of patient name: Yes Verification of date of : Yes Site marking: site marked Name of person performing procedure: Ernie Continuous monitoring Was continuous monitoring of O2 sat, B/P, behavioral health clinician, recorded every 15 minutes?: Yes Procedure Checklist: sterile prep, needles and gloves Ultrasound guided. Images saved: Yes Medications given in 5ml increments after negative aspiration: Marcaine %: 0.25 mL: 30 Needle gauge: 20 and Exparel mL: 10 Patient tolerated procedure well: Yes Additional comments: Needle noted adjacent to nerve Block Charges Block Charge (with Pro Fee): TAP Bilateral Use of Ultrasound Machine for Block: Yes- US Guidance/pain block
--- NOTE | 2022-09-13 12:34 | W.PM.GYNPROC ---
Procedure Note Date Seen: 09/13/22 Procedure Details: PREOPERATIVE DIAGNOSIS: hemorrhage with retained placenta POSTOPERATIVE DIAGNOSIS: hemorrhage with suspected placenta accreta PROCEDURE: Attempted manual removal of placental fragments uterine curettage under ultrasound guidance Total abdominal hysterectomy with bilateral salpingectomy 2 line cystoscopy SURGEON: Coco Brown MD ASSISTANTS: MD Julia Kapoor MD ANESTHESIA: General INTRAOPERATIVE IV FLUIDS: 5 L crystalloid 4 units packed red blood cells 3 units FFP 1 unit cryoprecipitate URINE OUTPUT: Not measured EBL: 350 mL intraoperatively FINDINGS: 1. Upon attempted manual removal placental fragments, there were palpable fragments of placenta in the posterior fundal region that could not be removed manually. Uterine curettage did not achieve removal of all of these fragments. 2. The endometrial stripe was appropriate in appearance in all other regions of the endometrial cavity. Upon laparotomy, bilateral tubes and ovaries were normal in appearance. External surface of the uterus was normal in appearance. The uterine weight was 1331 g. 3. Cystoscopy performed at end of procedure revealed bilateral ureteral jets and no perforation of the bladder. COMPLICATIONS: None PROCEDURE IN DETAIL: Patient was taken to the operating with IV running. She received 3 g cefazolin in preoperative prophylaxis. She was positioned in dorsal lithotomy position with her legs fully supported in Yellofin stirrups. General anesthesia was administered. She was prepped and draped in the usual sterile fashion. Schmidt catheter had previously been inserted. Ring forceps were attached to the cervix. The uterine cavity was manually explored with findings of abnormally adherent placenta in the posterior fundal region. Multiple attempts were made to remove this placenta manually. Suction curette and banjo curette were also attempted, both unsuccessful and unable to reach the affected areas. Decision was made to proceed with hysterectomy. Ring forceps were left in the cervix for later identification. Patient was otherwise prepped once again and draped for hysterectomy. An infraumbilical vertical midline incision was made extending from just above the pubic bone to just beneath the umbilicus. This was carried down to the underlying layer of fascia with the scalpel. Fat was dissected off the fascia in the midline with Bovie. The fascia was nicked in midline with a scalpel and this incision was extended superiorly and inferiorly with scissors. The peritoneum was entered near the superior aspect of the incision and this opening was widened with Bovie. Bowel was packed into the upper abdomen with dampened laparotomy packs. The Norman O retractor was inserted and tightened down. The uterus was exteriorized through this. Using the LigaSure Impact device, the right utero-ovarian ligament was cauterized and transected. The right tube was divided from its investing mesosalpinx with the Impact device, dissection carried laterally to medially, and the tube was amputated at the right uterine cornua. The right round ligament was cauterized and transected with the LigaSure Impact device. The broad ligament was entered at this site and the bladder flap was created moving from right to left, using a combination of sharp dissection and scissors. The uterine artery and veins were skeletonized along the patient's right side. The LigaSure Impact device was used to coagulate the uterine artery and veins. Attention was turned to the left side of the uterus. The left utero-ovarian ligament was cauterized and transected with the LigaSure Impact device. The left tube was divided from its investing mesosalpinx with the Impact device, with dissection carried laterally to medially, and the tube was amputated with the left uterine cornua. The left round ligament was cauterized and transected with the LigaSure Impact device. The broad ligament was entered at this site and the dissection of the bladder flap was continued, this time moving from left to right, meeting the previous dissection. The left uterine artery and veins were skeletonized along the patient's left side. The uterine artery was divided and transected with the LigaSure Impact device. The bladder was backfilled with sterile formula to aid in further dissection of the bladder reflection. This was slowly and painstakingly moved below the palpable ring forceps on the cervix with a combination of primarily sharp dissection and a small amount of electrocautery. The formula was then released from the bladder. The uterus was amputated just above the endocervix, and the edges of the lower uterine segment were grasped with Mae clamps circumferentially. The vagina was entered posteriorly with a scalpel. Using this as a guide, the uterosacral and the remaining cardinal ligaments were clamped, cut, and suture ligated with 0 Vicryl. The vagina was entered at the angles, and scissors was used to amputate the remaining specimen from the vagina. This specimen containing remaining lower uterine segment and cervix was sent to pathology as well. The vaginal cuff was closed with a series of [id number] sutures of 0 Vicryl. The vaginal cuff was copiously irrigated with warm water. Hemostasis was noted. Bowel packs were removed, as was the Norman O retractor, and the abdomen was copiously irrigated with warmed water. The fascia was closed with 0 looped PDS in a running fashion, incorporating the peritoneum in the closure. The subcutaneous fat was closed with interrupted sutures of 2-0 plain gut suture. The skin was closed with franko. Dressings were applied. Patient was given IV sodium fluorescein during vaginal cuff closure. Patient's legs were placed in lithotomy position once again. Catheter was removed. Cystoscopy was performed, revealing bilateral ureteral jets. Cystoscope was removed and Schmidt catheter replaced. Patient remained in stable condition throughout procedure, and remained intubated awaiting transfer to ICU.
--- NOTE | 2022-09-13 13:21 | W.ANESCHARGE ---
Anesthesia Charges Start Date/Time Anesthesia Start Date: 09/13/22 Anesthesia Start Time: 07:46 Stop Date/Time Anesthesia Stop Date: 09/13/22 Anesthesia Stop Time: 13:10 Summary Emergency: Yes
--- NOTE | 2022-09-13 13:24 | W.ANESCHARGE ---
Anesthesia Charges Start Date/Time Anesthesia Start Date: 09/13/22 Anesthesia Start Time: 07:46 Stop Date/Time Anesthesia Stop Date: 09/13/22 Anesthesia Stop Time: 13:10 Summary Emergency: Yes
--- NOTE | 2022-09-13 15:18 | SUR.OPER ---
09/13/2022 at 1500 Family, Steven, Carmen, updated that the MD was not able to complete procedure laproscopically and had to move to an open procedure.
--- NOTE | 2022-09-16 08:08 | SUR.OPER ---
Roxana present upon arrival to OR. This RN present upon pt arrival to OR.
== END 2022-09-13 13:15 | disposition short-term general hospital (02) | DRG 541 ==
PROVIDERS: Obstetrics & Gynecology; Admitting Provider Family Medicine; Visit Provider Obstetrics & Gynecology
PROC: 0UT90ZZ Resection of Uterus, Open Approach (ICD-10-PCS; principal; 2022-09-13 02:30)
PROC: 0UT94ZZ Resection of Uterus, Percutaneous Endoscopic Approach (ICD-10-PCS; CPT 52000; 2022-09-13 02:30)
DX: O32.0XX0 Maternal care for unstable lie, not applicable or unspecified (principal); O72.0 Third-stage hemorrhage; O43.213 Placenta accreta, third trimester; O75.81 Maternal exhaustion complicating labor and delivery; O63.1 Prolonged second stage (of labor); O70.1 Second degree perineal laceration during delivery; O90.81 Anemia of the puerperium; D62 Acute posthemorrhagic anemia; O99.214 Obesity complicating childbirth; O40.3XX0 Polyhydramnios, third trimester, not applicable or unspecified; Z3A.39 39 weeks gestation of pregnancy; Z37.0 Single live birth
CPT/HCPCS: 00840; 01967; 36415; 36600; 59200; 64488; 76815; 76942; 80053; 82803; 85025; 85384; 85610; 85730; 86850; 86900; 86901; 86922; 87635; 88304; 88307; 99140; A9270; C9290; J0330; J1100; J1170; J2210; J2250; J2270; J2274; J2405; J2590; J2704; J2795; J3010; J3490; J7120; P9012; P9016; P9017; S0020

== ENCOUNTER 2022-09-13 12:38 | Outpatient (CLI) | payer BC, SELFPAY | END 2022-09-13 12:39 | disposition home or self-care (01) | LOC: AMB 09-28 11:20 | PROVIDERS: Visit Provider Family Medicine | DX: O72.1 Other immediate postpartum hemorrhage (principal) | CPT/HCPCS: A0425; A0434 ==

== ENCOUNTER 2022-09-21 09:07 | Outpatient (CLI) | payer BC, SELFPAY ==
--- NOTE | 2022-09-21 17:35 | W.PM.LAC.MC ---
Consult Note - Mom Date of Visit Date of visit: 09/21/22 oracle ebs consultant: Lizzeth To Visit Code: Visit Patient's Information Phone number: [phone] : 2 Para: 1 Allergies No Known Drug Allergies Allergy (Verified 09/21/22 11:20) Mother's Medical History: Medical History (Updated 09/26/22 @ 11:16 by Judy Sanchez MD) Placenta accreta hemorrhage Retained placenta Delivery Information Delivery type: Vacuum Weeks Gestation: 39.4 Gestational Age: AGA Weight: 3.615 kg Discharge Weight: 3.466 kg Baby's Information Baby's Age at Visit: 8 days Baby's Provider or Clinic: Dr. Olson Jaundice: No Reason for Consult Reason for Consult: concern for latching, supply, requesting a schedule of feeding and pumping Past Experience Past Experience: No Current Frequency of Day Feedings: baby is eating about every 3 hours around the clock, mom isn't nursing much Both Breasts: Yes (mom attempts both sides when she does nurse, baby is sleepy at breast) Pumping Pumping: Yes (tries to pump every three hours) Quantity Pumped: 2 - 3 oz total each time Supplementing EMB Supplement: Yes (baby takes 2 - 2.5 oz of EBM or formula about every three hours) Formula Supplement: Yes Baby Elimination Number of Wet Diapers a Day: 7 - 8 Number of BM a Day: 7 - 8 Breast/Nipple Condition Breast Information: WNL, large Engorgement: No Maternal Nipple Condition - Left: Common Nipple Maternal Nipple Condition - Right: Common Nipple Sore Nipples: No Onsite Pre-Feed weight: 3.602 kg Post-Feed weight: 3.654 kg Milk Transferred (mL): 52 Pre-Nursing Left Nipple: Within Normal Limits Pre-Nursing Right Nipple: Within Normal Limits Post-Nursing Left Nipple: Within Normal Limits Post-Nursing Right Nipple: Within Normal Limits Assessments/Interventions Assessments/Interventions: Met with mom and this now 8 day old ex- term AGA baby for consult.? Mom had a with vacuum assist, but then had a PPH requiring an emergency hysterectomy.? Reports she's feeling good and is moving around well; can be uncomfortable when baby is resting on her abdomen.? Baby is eating about every 3 hours; mom attempts to nurse every other feeding but states he's sleepy or lazy at the breast.? She tries to pump with every feeding and since borrowing her sister's Baby Buddha pump a few days ago she's now getting between 60 - 90 ml total each session.? Baby's taking 60 - 70 ml at every feeding session and for the last two days it has been EBM only. Breast large but WNL- symmetrical with rounded lower quadrants, intramammary distance is < 1.5 inches.? Nipples are everted and don't flatten or retract with compression, no damage noted. Baby has gained 29 grams/day since his last visit on 09/19 and is less than 1% below BW at 8 DOL.? Dad reports a cephalohematoma from the vacuum that has resolved.? POC state baby has equal ROM when turning his head and moving his extremities.? Palate is WNL as are his upper and lower frenulum.? He has a strong suck on a finger and his tongue easily extends past the gum line; the tongue also has good lateral movement.? Mom was assisted with latching baby in the football hold on the right side and baby had a deep latch, but became sleepy after a minute or so.? He was easily roused however and with stimulation mom felt nutritive suckling and was comfortable.? He nursed for 15 - 20 minutes on the right.? To practice the football hold in bed, we moved to a patient room and she was again assisted with latching him to the left side.? He was very sleepy and only nursed for about 5 minutes.? He transferred 52 ml. Plan: 1. Suggested mom practice nursing with every feeding session (or as many as possible).? Offer both sides and work to keep him awake and nutritively suckling.? Reviewed that an average nursing session is 20 - 40 minutes. 2. Baby is eating about 8 times/24 hours.? Mom's milk supply (based on what she's now pumping and how much baby transferred) appears to be right where it should be.? D/T her significant blood loss however, suggested she try and have 10 breast stimulation sessions in 24 hours (either nursing only, pumping only, or nursing then pumping).? 3. No medical need to supplement if baby seems satisfied after nursing.? If he seems fussy, ok to give EBM. 4. Will f/u by phone next week.? Reviewed this feeding/pumping plan can be adjusted as she feels more confident about her supply/if she's feeling overwhelmed. Meds Home Medications and Allergies Home Medications Medication Instructions Recorded Confirmed Type 103-folic acid 400 1 tab PO DAILY 08/30/22 09/13/22 History mcg-omeg3 32.5 mg-dha-fish oil chew tablet ( with DHA and Folic Acid) acetaminophen 500 mg tablet 1,000 mg PO Q6H PRN 09/21/22 09/21/22 History (Tylenol Extra Strength) ibuprofen 600 mg tablet 600 mg PO Q8H PRN 09/21/22 09/21/22 History Allergies Allergy/AdvReac Type Severity Reaction Status Date / Time No Known Drug Allergies Allergy Verified 09/21/22 11:20
== END 2022-09-21 09:08 | disposition home or self-care (01) ==
PROVIDERS: Visit Provider Family Medicine
DX: T81.49XA Infection following a procedure, other surgical site, initial encounter (principal)
CPT/HCPCS: 99211